=== PATIENT | male | born 1935 | race Caucasian/White ===

== ENCOUNTER → 2017-08-09 15:23 | Outpatient (CLI) | payer MEDICARE, SELFPAY ==
[2017-08-09 16:07] LABS: Mucous, Urine 0 SEEN /hpf (<or=2+)
[2017-08-09 17:00] LABS: Color, Urine Yellow (Yellow); Glucose, Dipstick 1000 mg/dl (Normal); Ketone-Dipstick Negative (Negative); Leukocyte Esterase-Dipstick 500 /ul (Negative); Nitrite-Dipstick Positive (Negative); Occult Blood-Urine 250 /ul (Negative); Protein-Dipstick 100 mg/dl (Negative); Urine Bilirubin Dipstick Negative (Negative); Urine Clarity Turbid (Clear); Urine Urobilinogen Normal (Normal)
[2017-08-09 17:34] LABS: Red Blood Cells-Urine 5-10 SEEN /hpf (0-5); Squamous Epithelial Cells - UA 0-5 SEEN /hpf (0-5); White Blood Cells >100 SEEN /hpf (0-5)
[2017-08-09 17:35] LABS: Bacteria 1+ /hpf (None Seen)
== END ==
PROVIDERS: Family Provider Internal Medicine; PCP Internal Medicine; Visit Provider Internal Medicine
DX: R30.0 Dysuria (principal); R35.0 Frequency of micturition; R39.15 Urgency of urination
CPT/HCPCS: 81001; 87077; 87086; 87088; 87186

== ENCOUNTER 2017-12-04 08:50 | Emergency (ER) | payer MEDICARE, SELFPAY ==
--- NOTE | 2017-12-04 08:50 | DT_ITS ---
This patient was seen during an EMR downtime December 03, 2017 - December 10, 2017. This patient may have a combination of paper and electronic documentation or all paper documentation. All documentation is viewable within the e-chart portion of [facility] for each patient visit.
--- NOTE | 2017-12-04 10:45 | CT_ITS ---
STUDY: CT ABDOMEN AND PELVIS WITHOUT CONTRAST REASON FOR EXAM: Male, 82 years old. Left lower quadrant pain. RADIATION DOSAGE (If Supplied By Facility): CTDIvol = ( 7.79 ) mGy, DLP = ( 396.99 ) mGycm TECHNIQUE: Transaxial images were obtained from the dome of the diaphragm to the symphysis pubis without oral contrast, and without intravenous contrast. Sagittal and coronal images were reconstructed. Individualized dose optimization techniques were used for this CT. COMPARISON: None. FINDINGS: The visualized lung bases are unremarkable. The visualized portions of the heart are within normal limits. Normal liver. There are multiple gallstones. There is moderate splenomegaly. Normal pancreas. Normal bilateral adrenal glands. Normal right kidney. Normal left kidney. No definite renal or ureteral stones are seen. There is no hydronephrosis on either side. Evaluation of the GI tract is limited by absence of oral contrast. Cannot exclude stomach wall thickening. No dilated loops of bowel or evidence for obstruction. Cannot exclude segmental thickening of the garrett of the small or large bowel. Cannot exclude enteritis or colitis. Moderate diffuse fecal retention. Diverticulosis without definite diverticulitis. Appendix within normal limits. Normal abdominal aorta. Normal inferior vena cava. Normal retroperitoneum. Normal urinary bladder. There is enlargement of the prostate gland. Normal abdominal wall. There are diffuse degenerative changes of the visualized lumbar spine. There are marked deformities of the left pelvis from previous fractures. There has been previous surgical repair RIGHT hip fracture. CT/Abdomen/Pelvis without Cont IMPRESSION: No definite acute abnormality. Electronically Signed: Otis Chacon MD at 21:38 EDT , Service support ,
[2017-12-06 18:49] LABS: Color, Urine Yellow (Yellow); Glucose, Dipstick 1000 mg/dl (Normal); Ketone-Dipstick Negative (Negative); Mucous, Urine 0 SEEN /hpf (<or=2+); Red Blood Cells-Urine 0 SEEN /hpf (0-5); Urine Bilirubin Dipstick Negative (Negative); Urine Clarity Sl Cloudy (Clear)
[2017-12-06 18:50] LABS: Bacteria 2+ /hpf (None Seen); Leukocyte Esterase-Dipstick 100 /ul (Negative); Nitrite-Dipstick Positive (Negative); Occult Blood-Urine 10 /ul (Negative); Protein-Dipstick 30 mg/dl (Negative); Squamous Epithelial Cells - UA 0-5 SEEN /hpf (0-5); Urine Urobilinogen Normal (Normal); White Blood Cells 0-5 SEEN /hpf (0-5)
[2017-12-07 13:41] LABS: Hematocrit 38.8 % (40-54); Hemoglobin 12.9 g/dl (13.0-16.5); Mean Corpuscular Volume 91.5 fL (80-94); Red Blood Count 4.24 M/mm3 (4.6-6.2); White Blood Count 6.6 K/mm3 (4.4-11.0)
[2017-12-07 13:42] LABS: Absolute Lymphocyte Count 0.86 X10^3/ul (0.83-4.51); Absolute Neutrophil Count 5.1 X10^3/uL (2.0-7.7); Basophil# 0.02 X10^3/uL; Basophil% 0.3 % (0-1); Eosinophil# 0.24 X10^3/uL; Eosinophils% 3.6 % (0-5); Lymphocyte # 0.86 X10^3/ul (4.0); Mean Corp Hgb Conc 33.2 g/gl (32-36); Mean Corpuscular Hgb 30.4 pg (27.0-32.0); Mean Platelet Vol. 11.8 fl (6.2-12.0); Monocyte# 0.43 X10^3/uL; Monocyte% 6.5 % (0-10); Neutrophil # 5.08 X10^3/uL (2.7-7.7); Neutrophil % 76.4 % (47-70); POSITIVE COUNT NO; POSITIVE DIFFERENTIAL NO; POSITIVE MORPHOLOGY NO; Platelet Count 148 K/mm3 (150-450); RBC Distribution Width CV 12.5 % (11.6-14.6); RBC Distribution Width SD 40.9 fl (35.1-43.9)
[2017-12-08 04:29] LABS: Anion Gap 6 (5-15); BUN 14 mg/dL (7-18); BUN/Creat Ratio 8.2 RATIO (10-20); Calcium,Total 8.7 mg/dL (8.5-10.1); Chloride 100 mmol/L (98-107); Creatinine, Serum 1.71 mg/dL (0.70-1.30); EST Glomerular Filtration Rate 41 mL/min (>60); Est Glom Filt Rate - Afr Amer 50 mL/min (>60); Glucose 241 mg/dL (74-106); Potassium 4.5 mmol/L (3.5-5.1); Sodium Level 133 mmol/L (136-145)
== END 2017-12-04 12:55 | disposition home or self-care (01) ==
PROVIDERS: Emergency Provider Emergency Medicine; Family Provider Internal Medicine; PCP Internal Medicine
DX: S30.1XXA Contusion of abdominal wall, initial encounter (principal); W01.0XXA Fall on same level from slipping, tripping and stumbling without subsequent striking against object, initial encounter; Y93.9 Activity, unspecified; Y92.9 Unspecified place or not applicable; N39.0 Urinary tract infection, site not specified; R19.7 Diarrhea, unspecified; E78.00 Pure hypercholesterolemia, unspecified; F03.90 Unspecified dementia, unspecified severity, without behavioral disturbance, psychotic disturbance, mood disturbance, and anxiety; J44.9 Chronic obstructive pulmonary disease, unspecified; E03.9 Hypothyroidism, unspecified; I12.9 Hypertensive chronic kidney disease with stage 1 through stage 4 chronic kidney disease, or unspecified chronic kidney disease; E11.22 Type 2 diabetes mellitus with diabetic chronic kidney disease; N18.3 Chronic kidney disease, stage 3 (moderate); Z79.4 Long term (current) use of insulin; Z79.899 Other long term (current) drug therapy
CPT/HCPCS: 36415; 74176; 80048; 81001; 85025; 99284; P9612

== ENCOUNTER 2018-10-31 12:18 | Emergency (ER) | payer MEDICARE, SELFPAY ==
[2018-10-10 13:44] VITALS: BMI 25.9
[2018-10-31 12:21] VITALS: BP 123/62; PULSE 46; PULSE 48; RESP 17; TEMP 36.6; O2SAT 97; O2SAT 98; BMI 25.9
--- NOTE | 2018-10-31 12:57 | ED.VISSUMM ---
- ER Visit Summary Date of Service: 10/31/18 Chief Complaint: [] Skin of back itching this morning History of Present Illness: The patient is a 83 M [] COPD asthma diabetes per the Sunday was started on tapering dose of prednisone by Dr. Javier has been doing well with his breathing his general health has been very good he said really no complaints except this morning he woke with severe itching involving his lower back it is not pain it is itching of the skin she indicates she spoke with his providers and he was told to come to the emergency department to have his kidneys checked, however his kidney function has not been an issue recently, he is eating and drinking he is passing urine without difficulty and bowel habits been normal he had no skin rash and there is nothing else that is troubling him Nothing specific or unique that could have caused the back itching such as new clothing etc. Physical Examination: [] vs Normal range he is in no distress General, no distress resting comfortably HEENT is generally unremarkable The neck is supple no adenopathy Cardiovascular, regular rate and rhythm his heart rate is 40-50 sinus rhythm Lungs, clear bilateral Abdomen, soft nontender The back exam shows no pain the skin is unremarkable but he is complaining of itching in a diffuse fashion to his back there is no lesions to any other part of his skin he is awake to his normal per the Extremities, no clubbing cyanosis or edema Neurologic, awake alert answering questions appropriately moving all 4 extremities with the patient has no specific complaints other than his back is itching Test Results: [] Emergency Department Course and Treatment: [] Given all of the above and the 's concerns that his kidney function should be checked we will obtain some screening labs spoke with Dr. Hill they were unaware of the patient's call to the office or visit to the emergency department given all the above they have no other additional instructions Treatment Plan: [] he is creatinine returns at about 2.17 he has had creatinines in that range in the past there is no recent tests to review, he voided just before he got to the emergency department he is been unable to void here but the rest of the studies were unremarkable the is comfortable taking him home she will use hydrocortisone to the back and follow-up with all of his outpatient providers tomorrow Disposition: [] Home stable Impression: [] Pruritus involving the back This note was generated with Appatureation software. It may contain incorrect words, spelling, and punctuation that were not noted in review of the chart prior to signing ED Disposition - Plan for ED Patient: Referrals: Estelle Araujo MD [Primary Care Provider] -
[2018-10-31 13:17] LABS: Absolute Lymphocyte Count 0.79 X10^3/ul (0.83-4.51); Absolute Neutrophil Count 3.4 X10^3/uL (2.0-7.7); Basophil# 0.01 X10^3/uL; Basophil% 0.2 % (0-1); Eosinophil# 0.05 X10^3/uL; Hematocrit 28.9 % (40-54); Hemoglobin 9.4 g/dl (13.0-16.5); Lymphocyte # 0.79 X10^3/ul (4.0); Lymphocyte % 16.4 % (19-41); Mean Corp Hgb Conc 32.5 g/gl (32-36); Mean Corpuscular Hgb 25.6 pg (27.0-32.0); Mean Corpuscular Volume 78.7 fL (80-94); Mean Platelet Vol. 11.1 fl (6.2-12.0); Monocyte# 0.51 X10^3/uL; Monocyte% 10.6 % (0-10); Neutrophil # 3.44 X10^3/uL (2.7-7.7); Neutrophil % 71.6 % (47-70); Platelet Count 100 K/mm3 (150-450); RBC Distribution Width CV 14.8 % (11.6-14.6); RBC Distribution Width SD 42.5 fl (35.1-43.9); Red Blood Count 3.67 M/mm3 (4.6-6.2); White Blood Count 4.8 K/mm3 (4.4-11.0)
[2018-10-31 13:18] LABS: POSITIVE COUNT NO; POSITIVE DIFFERENTIAL NO; POSITIVE MORPHOLOGY NO
[2018-10-31 13:28] LABS: Anion Gap 5 (5-15); BUN 24 mg/dL (7-18); BUN/Creat Ratio 11.2 RATIO (10-20); Calcium,Total 7.7 mg/dL (8.5-10.1); Chloride 102 mmol/L (98-107); Creatinine, Serum 2.14 mg/dL (0.70-1.30); EST Glomerular Filtration Rate 31 mL/min (>60); Est Glom Filt Rate - Afr Amer 38 mL/min (>60); Estimated Creatinine Clearance 24.86 ml/min; Glucose 266 mg/dL (74-106); Potassium 3.9 mmol/L (3.5-5.1); Sodium Level 133 mmol/L (136-145)
--- NOTE | 2018-10-31 15:07 | ED.DEP ---
ED Disposition - Plan for ED Patient: Instructions: ED Allergic Reaction General Other Referrals: Estelle Araujo MD [Primary Care Provider] - Additional Instructions: Please use hydrocortisone 1% to the back and follow-up with your outpatient providers tomorrow return for change in symptoms
[2018-10-31 15:29] VITALS: BP 134/60; PULSE 43; RESP 16
[2018-10-31 15:31] VITALS: BP 134/60; PULSE 43; RESP 16
== END 2018-10-31 15:39 | disposition home or self-care (01) ==
PROVIDERS: Emergency Provider Emergency Medicine; Family Provider Internal Medicine; PCP Internal Medicine
DX: L29.9 Pruritus, unspecified (principal); J44.9 Chronic obstructive pulmonary disease, unspecified; J45.909 Unspecified asthma, uncomplicated; E11.9 Type 2 diabetes mellitus without complications
CPT/HCPCS: 80048; 85025; 99284

== ENCOUNTER 2018-12-08 19:28 | Emergency (ER) | payer MEDICARE, SELFPAY ==
[2018-12-08 19:31] VITALS: BP 96/60; PULSE 59; RESP 17; TEMP 36.5; O2SAT 100; BMI 27.0
[2018-12-08 20:03] VITALS: BP 95/54; PULSE 58; RESP 16; O2SAT 95
--- NOTE | 2018-12-08 20:16 | EKG12_ITS ---
Test Reason : WEAKNESS Blood Pressure : / mmHG Vent. Rate : 056 BPM Atrial Rate : 056 BPM P-R Int : 216 ms QRS Dur : 086 ms QT Int : 502 ms P-R-T Axes : 072 -50 -58 degrees QTc Int : 484 ms Sinus bradycardia with 1st degree A-V block Left axis deviation Cannot rule out Anterior infarct , age undetermined Marked ST abnormality, possible inferior subendocardial injury Abnormal ECG Confirmed by MARCY JUAREZ, JERARDO ([id number]), writer editor ANNE MARIE MORRISON ([id number]) on 12/10/2018 8:09:36 AM Referred By: Confirmed By:JERARDO VIDAL MD
--- NOTE | 2018-12-08 20:16 | CT_ITS ---
STUDY: CT ABDOMEN AND PELVIS WITHOUT CONTRAST REASON FOR EXAM: Male, 83 years old. Audible fall, weakness. RADIATION DOSAGE (If Supplied By Facility): CTDIvol = ( 12.12 ) mGy, DLP = ( 982.33 ) mGycm TECHNIQUE: Transaxial images were obtained from the dome of the diaphragm to the symphysis pubis without oral contrast, and without intravenous contrast. Sagittal and coronal images were reconstructed. Individualized dose optimization techniques were used for this CT. COMPARISON: 12/04/2017. FINDINGS: Bilateral pleural effusions. Visualized heart is normal. The liver is unremarkable. Multiple dependent stones in the gallbladder. The spleen and pancreas are unremarkable. The adrenal glands are normal. The kidneys are unremarkable. No stones or hydronephrosis. The aorta is normal in caliber. There is no free fluid, free air, or organized collection. No bowel obstruction or inflammatory change. Normal appendix. Urinary bladder is unremarkable. There is a small fat-containing umbilical hernia. There is no acute osseous abnormality. Old healed fractures of the left pelvis are noted. Prior right hip pinning. CT/Abdomen/Pelvis without Cont IMPRESSION: 1. Bilateral pleural effusions. 2. Cholelithiasis. 3. Old healed pelvic fractures. Electronically Signed: Marlyn Wiley MD at 22:32 EDT Tel , Service support ,
--- NOTE | 2018-12-08 20:16 | CT_ITS ---
STUDY: CT BRAIN WITHOUT CONTRAST REASON FOR EXAM: Male, 83 years old. Multiple falls, weakness. RADIATION DOSAGE (If Supplied By Facility): CTDIvol = ( 44.99 ) mGy, DLP = ( 829.85 ) mGycm TECHNIQUE: Transaxial CT imaging of the brain was performed without administration of intravenous contrast material. Individualized dose optimization techniques were used for this CT. COMPARISON: No relevant priors. FINDINGS: Normal soft tissue structures. Normal calvarium. There is severe cerebral atrophy with widening of the extra-axial spaces and ventricular dilatation. There are areas of decreased attenuation within the white matter tracts of the supratentorial brain, consistent with microvascular disease changes. Normal basal ganglia and thalami. Normal brainstem. Normal cerebellum. There is no intracranial hemorrhage. There are no findings of an acute ischemic infarction. Fluid levels are noted in the maxillary, right frontal and sphenoid sinuses. There is mucosal thickening in the frontal, ethmoid, sphenoid and maxillary sinuses. CT/Brain/Head without Contrast IMPRESSION: 1. Acute on chronic sinusitis. 2. Chronic involutional changes. Electronically Signed: Marlyn Wiley MD at 22:44 EDT Tel , Service support ,
--- NOTE | 2018-12-08 20:17 | CT_ITS ---
STUDY: CT CERVICAL SPINE WITHOUT CONTRAST REASON FOR EXAM: Male, 83 years old. Multiple falls, weakness. RADIATION DOSAGE (If Supplied By Facility): CTDIvol = ( 22.09 ) mGy, DLP = ( 500.60 ) mGycm TECHNIQUE: High resolution transaxial imaging was performed without contrast material. Sagittal and coronal images were reconstructed. Individualized dose optimization techniques were used for this CT. COMPARISON: None FINDINGS: Normal craniovertebral junction. Normal anterior atlantoaxial articulation. Normal odontoid process. Normal cervical lordosis. Normal vertebral bodies and posterior osseous elements. C2-3: Normal endplates. Normal disc height and morphology. Normal central canal and intervertebral neuroforamina. There is bilateral uncinate hypertrophy. There is moderate facet hypertrophy, greater on the right. C3-4: Normal endplates. Normal disc height and morphology. There is a central calcified disc protrusion and mild canal stenosis. Foraminal stenosis is severe bilaterally, greater on the right, due to uncinate and marked right facet hypertrophy. C4-5: Normal endplates. Normal disc height and morphology. There is a central calcified disc protrusion. No canal stenosis. Foraminal stenosis is moderate on the left and severe on the right due to uncinate and marked right facet hypertrophy. C5-6: Normal endplates. Normal disc height and morphology. Small central disc protrusion. No canal stenosis. There is moderate bilateral foraminal stenosis, predominantly due to facet hypertrophy. Normal central canal and intervertebral neuroforamina. C6-7: Normal endplates. Normal disc height and morphology. Normal central canal and intervertebral neuroforamina. Uncinate and facet hypertrophy, greater on the right. C7-T1: Normal endplates. Normal disc height and morphology. Normal central canal and intervertebral neuroforamina. Bilateral pleural effusions are noted. CT/Spine Cervical without Contras IMPRESSION: 1. No evidence of cervical trauma. 2. Bilateral pleural effusions. 3. Mild degenerative changes of the cervical spine. Electronically Signed: Marlyn Wiley MD at 22:56 EDT Tel , Service support ,
[2018-12-08] MEDS: fentaNYL 100 MCG/2 ML Ampul 50 MCG IV ×2 (20:40→22:51)
--- NOTE | 2018-12-08 20:42 | RAD_ITS ---
STUDY: X-RAY CHEST REASON FOR EXAM: Male, 83 years old. Generalized weakness. TECHNIQUE: Portable chest. COMPARISON: 08/27/2014. FINDINGS: There is pulmonary hyperinflation with COPD. There is no demonstrated pleural abnormality. Normal size heart. Normal mediastinum and jocelyn. Normal visualized pulmonary arteries. Normal visualized aortic arch and descending thoracic aorta. Normal visualized thoracic spine. Normal visualized ribs, clavicles, and shoulders. There is no demonstrated abnormality of the visualized soft tissue structures of the upper abdomen. RAD/Chest 1 View (Portable) IMPRESSION: 1. COPD. No acute findings. Electronically Signed: Marlyn Wiley MD at 22:06 EDT Tel , Service support ,
[2018-12-08 20:52] LABS: Absolute Lymphocyte Count 0.79 X10^3/ul (0.83-4.51); Absolute Neutrophil Count 10.4 X10^3/uL (2.0-7.7); Hematocrit 20.4 % (40-54); Hemoglobin 6.4 g/dl (13.0-16.5); Lymphocyte # 0.79 X10^3/ul (4.0); Lymphocyte % 6.2 % (19-41); Mean Corp Hgb Conc 31.4 g/gl (32-36); Mean Corpuscular Hgb 24.2 pg (27.0-32.0); Monocyte# 1.51 X10^3/uL; Monocyte% 11.8 % (0-10); Neutrophil # 10.43 X10^3/uL (2.7-7.7); Neutrophil % 81.6 % (47-70); Platelet Count 223 K/mm3 (150-450); RBC Distribution Width CV 18.4 % (11.6-14.6); Red Blood Count 2.65 M/mm3 (4.6-6.2); White Blood Count 12.8 K/mm3 (4.4-11.0)
[2018-12-08 20:53] LABS: POSITIVE COUNT NO; POSITIVE DIFFERENTIAL YES
[2018-12-08 20:54] LABS: Differential Indicated SCAN CRITERIA MET; POSITIVE MORPHOLOGY YES
[2018-12-08 21:11] LABS: Differential Comment SCANNED
[2018-12-08 21:23] LABS: AST(SGOT) 846 U/L (15-37); Alanine Aminotransfer ALT/SGPT 897 U/L (16-61); Albumin, Serum 2.6 g/dL (3.2-5.0); Alkaline Phosphatase 106 U/L (45-117); Anion Gap 18 (5-15); BUN 89 mg/dL (7-18); BUN/Creat Ratio 17.9 RATIO (10-20); Bilirubin, Direct 1.34 mg/dL (0.00-0.30); Calcium,Total 7.1 mg/dL (8.5-10.1); Chloride 98 mmol/L (98-107); Creatinine, Serum 4.98 mg/dL (0.70-1.30); EST Glomerular Filtration Rate 12 mL/min (>60); Est Glom Filt Rate - Afr Amer 14 mL/min (>60); Estimated Creatinine Clearance 10.68 ml/min; Globulin 3.3 g/dL (2.2-4.2); Glucose 170 mg/dL (74-106); Lipase 445 U/L (73-393); Potassium 5.6 mmol/L (3.5-5.1); Protein, Total 5.9 g/dL (6.4-8.2); Sodium Level 130 mmol/L (136-145)
[2018-12-08 21:25] LABS: Lactic Acid 5.5 mmol/L (0.4-2.0)
--- NOTE | 2018-12-08 21:25 | ED.RN ---
DR BALLARD AWARE OF TROPONIN 6.3 AND LACTIC 5.5.
--- NOTE | 2018-12-08 21:27 | ED.RN ---
CRITICAL TROPONIN LEVEL RECEIVED, MD AND RN AWARE.
--- NOTE | 2018-12-08 21:57 | HP.PCM_ITS ---
History of Present Illness Date of Admission: 12/08/18 Chief Complaint: Weak, fatigued, falls The patient is a 83 year old M [] Past Medical History Past Medical History (Chronic Problems): Chronic Problems (Last Reviewed 06/19/18 @ 10:48 by CIARA Jordan) Mild persistent asthma (Chronic) Dysphagia (Chronic) Type 2 diabetes mellitus (Chronic) Depression (Chronic) Dementia (Chronic) Chronic obstructive lung disease (Chronic) CKD (chronic kidney disease), stage III (Chronic) Chronic congestive heart failure (Chronic) Benign essential hypertension (Chronic) A-fib (Chronic) history of duodenal tumor (Chronic) Coronary artery disease (Chronic) Hypothyroidism (Chronic) Hyperlipidemia (Chronic) Gastroesophageal reflux disease (Chronic) Asthma (Chronic) Medical History: Medical History (Last Reviewed 06/19/18 @ 10:48 by CIARA Jordan) Asthma with acute exacerbation (Acute) J45.901 Acute sinusitis (Acute) J01.90 Mild persistent asthma (Chronic) J45.30 Dysphagia (Chronic) R13.10 Type 2 diabetes mellitus (Chronic) E11.9 Depression (Chronic) F32.9 Dementia (Chronic) F03.90 Chronic obstructive lung disease (Chronic) J44.9 CKD (chronic kidney disease), stage III (Chronic) Chronic congestive heart failure (Chronic) I50.9 Benign essential hypertension (Chronic) I10 A-fib (Chronic) I48.91 history of duodenal tumor (Chronic) Coronary artery disease (Chronic) I25.10 Hypothyroidism (Chronic) E03.9 Hyperlipidemia (Chronic) E78.5 Gastroesophageal reflux disease (Chronic) K21.9 Asthma (Chronic) J45.909 Allergies amoxicillin trihydrate [From Augmentin] Allergy (Verified 12/08/18 19:36) Other ciprofloxacin [From Cipro] Allergy (Verified 12/08/18 19:36) Unknown levofloxacin [From Levaquin] Allergy (Verified 12/08/18 19:36) Other meperidine HCl [From Demerol] Allergy (Verified 12/08/18 19:36) Other potassium clavulanate [From Augmentin] Allergy (Verified 12/08/18 19:36) Other prochlorperazine edisylate [From Compazine] Allergy (Verified 12/08/18 19:36) Other prochlorperazine maleate [From Compazine] Allergy (Verified 06/09/19 19:36) Other ranitidine [From Zantac] Adverse Reaction (Verified 12/08/18 19:36) Nausea/Vom/Diarrhea Sulfa (Sulfonamide Antibiotics) Adverse Reaction (Verified 12/08/18 19:36) Nausea/Vom/Diarrhea Home Medications: Ambulatory Orders Medication Instructions Recorded Atenolol [Tenormin (beta boni)] 25 mg PO DAILY 05/20/14 Atorvastatin Calcium [Lipitor] 10 mg PO QHS 05/20/14 Cholecalciferol (VIT D3) [Vitamin 1,000 unit PO DAILY 05/20/14 D3] Insulin Glargine [Lantus SoloStar 58 units SUBCUT QHS 05/20/14 Pen] Levothyroxine [Synthroid] 75 mcg PO DAILY 05/20/14 Montelukast [Singulair] 10 mg PO DAILY 05/20/14 Vitamin B-12 1,000 mg PO DAILY 05/20/14 albuterol sulfate HFA 90 2 puff INHALATION Q4H g 10/17/17 mcg/actuation aerosol inhaler beclomethasone diprop 80 1 puff INHALATION BID #3 device 01/17/18 mcg/actuation HFA breath activated aerosol fluticasone propionate 50 2 spray INTRANASAL BID #16 g 09/13/18 mcg/actuation nasal spray,suspension albuterol sulfate 2.5 mg/3 mL 2.5 mg INHALATION Q4H PRN #180 vial 11/29/18 (0.083 %) solution for nebulization Insulin Lispro [Humalog] 100 unit SQ .COMPLEX 12/08/18 L. Acidophilus/L. Rhamnosus 1 each PO DAILY 12/08/18 [Probiotic 15 Billion Cell Cap] Maypearl-3 Fatty Acids [Fish Oil] 1,000 mg PO DAILY 12/08/18 Surgical History: Surgical History (Last Reviewed 06/19/18 @ 10:48 by CIARA Jordan) History of right cataract extraction (Resolved) Z98.41 Surgical History: no surgical history Smoking Status: Never smoker - Physical Exam Vital Signs Temp Pulse Resp BP Pulse Ox 97.7 F L 58 L 16 95/54 L 95 12/08/18 19:31 12/08/18 20:03 12/08/18 20:03 12/08/18 20:03 12/08/18 20:03 Oxygen Delivery Method Room Air Weight: 177 lb 14.609 oz Body Mass Index (BMI) 27.0 Laboratory Tests Past 24 Hrs 12/08/18 12/08/18 12/08/18 20:30 20:30 20:30 WBC 12.8 H RBC 2.65 L Hgb 6.4 L Hct 20.4 L MCV 77.0 L MCH 24.2 L MCHC 31.4 L RDW 18.4 H RDW Differential 52.0 H Plt Count 223 MPV 12.0 Immature Gran % (Auto) 0.400 Neut % (Auto) 81.6 H Lymph % (Auto) 6.2 L Slope % (Auto) 11.8 H Eos % (Auto) 0.0 Baso % (Auto) 0.0 Absolute Neuts (auto) 10.4 H Absolute Lymphs (auto) 0.79 L Total Counted Not Reportable Nucleated RBC % 0.10 Differential Comment SCANNED Absolute Retic 0.80 Sodium 130 L Potassium 5.6 H Chloride 98 Carbon Dioxide 14.0 L Anion Gap 18 H BUN 89 H Creatinine 4.98 H Estim Creat Clear Calc 10.68 Est GFR (MDRD) Af Amer 14 L Est GFR (MDRD) Non-Af 12 L BUN/Creatinine Ratio 17.9 Glucose 170 H Lactic Acid 5.5 H* Calcium 7.1 L Total Bilirubin 2.30 H Direct Bilirubin 1.34 H AST 846 H ALT 897 H Alkaline Phosphatase 106 Troponin I 6.300 H* Total Protein 5.9 L Albumin 2.6 L Globulin 3.3 Lipase 445 H Assessment/Plan All Active Problems (Last Reviewed 06/19/18 @ 10:48 by Shannan Sosa NP-C) History of right cataract extraction (Resolved) Asthma with acute exacerbation (Acute) Acute sinusitis (Acute)
[2018-12-08 22:00] VITALS: BP 108/61; PULSE 97; RESP 19; O2SAT 98
--- NOTE | 2018-12-08 22:33 | PCM.HOSP.N ---
Hospitalist Note The patient is a 83 y/o M w/ PMHx: HTN, HLD, Chronic Asthma and COPD, GERD, Hx Duodenal Tumor, CAD, Diabetes mellitus type II, Dementia unclear type with unclear behavioral disturbance history Chronic CHF Unclear type, PAF, CKD stage III (baseline Cr 1.5-2), Chronic Microcytic Anemia (baseline Hgb 9 range) who presents to the [facility] ED on 12/08/18 with history of recently progressively worsening generalized weakness, malaise, poor oral intake, fluctuating blood sugars, frequent falls over the last several days in addition to abdominal and lumbar back pain complaints. Work-up in the ED included T 97.7, heart rate 59, BP 96/60, respiratory rate 17, 100% on room air, CBC with WC 12.8, hemoglobin 6.4, platelet 223 with left shift, CMP with sodium 130, potassium 5.6, carbon dioxide 14, anion gap 18, BUN/Cr 89/4.98, glucose 170, lactic acid 5.5, T bili 2.3, D bili 1.34, AST/ALT 846/897, Trop 6.30, lipase 445. CXR, CT A/P without contrast, CT head, CT neck pending. In the ED patient administered NS, Fentanyl. Discussion CODE status: Discussed CODE status at length including difference between FULL code, DNR-CCA and DNR-CC status. Following discussions about the differences in these status, requested DNR-CC status. DNR-CC form signed and placed on the chart. Discussed hospice evaluation options and family and HCPOA elevated transition from ED to [facility] who was contacted and RN evaluation pending. Advanced Care Planning Face to Face Time: 20 minutes. Code Visit Procedures: [id number] Advncd Care Plan 30 Min
--- NOTE | 2018-12-08 22:45 | CCHN_ITS ---
Hospitalist Note The patient is a 83 y/o M w/ PMHx: HTN, HLD, Chronic Asthma and COPD, GERD, Hx Duodenal Tumor, CAD, Diabetes mellitus type II, Dementia unclear type with unclear behavioral disturbance history Chronic CHF Unclear type, PAF, CKD stage III (baseline Cr 1.5-2), Chronic Microcytic Anemia (baseline Hgb 9 range) who presents to the [facility] ED on 12/08/18 with history of recently progressively worsening generalized weakness, malaise, poor oral intake, fluctuating blood sugars, frequent falls over the last several days in addition to abdominal and lumbar back pain complaints. Work-up in the ED included T 97.7, heart rate 59, BP 96/60, respiratory rate 17, 100% on room air, CBC with WC 12.8, hemoglobin 6.4, platelet 223 with left shift, CMP with sodium 130, potassium 5.6, carbon dioxide 14, anion gap 18, BUN/Cr 89/4.98, glucose 170, lactic acid 5.5, T bili 2.3, D bili 1.34, AST/ALT 846/897, Trop 6.30, lipase 445. CXR, CT A/P without contrast, CT head, CT neck pending. In the ED patient administered NS, Fentanyl. Discussion CODE status: Discussed CODE status at length including difference between FULL code, DNR-CCA and DNR-CC status. Following discussions about the differences in these status, requested DNR-CC status. DNR-CC form signed and placed on the chart. Discussed hospice evaluation options and family and HCPOA elevated transition from ED to [facility] who was contacted and RN evaluation pending. Advanced Care Planning Face to Face Time: 20 minutes. Code Visit Procedures: [id number] Advncd Care Plan 30 Min
--- NOTE | 2018-12-08 23:19 | ED.DCSUM_ITS ---
- ER Visit Summary Date of Service: 12/08/18 Chief Complaint: Generalized weakness History of Present Illness: The patient is a 83 M presenting with generalized weakness and fatigue. Patient's family states he has been declining over the past several days. They have made multiple attempts to convince him to come to the hospital. He has had malaise, fluctuating blood sugars, unsteady gait, falls. He has had a decreased appetite. They finally convinced him to come to the ED today. He has been complaining of abdominal pain and back pain. Patient denies pain on arrival. He has a history of dementia Physical Examination: Blood pressure 95/54, temperature 97.7, heart rate 68, respiratory rate 19, 98% on room air HEENT exam dry mucous membrane Neck is supple. Lungs are clear and equal bilaterally. Heart is regular rate and rhythm. Abdomen is soft diffuse tenderness with no rebound or guarding Extremities symmetric edema Skin is warm and dry, pallor and jaundice Alert at baseline Remainder of exam is unremarkable. Emergency Department Course and Treatment: EKG is sinus bradycardia rate of 56 with first-degree AV block. Chest x-ray shows COPD. CBC shows white count 12.8, hemoglobin 6.4. Chemistries show sodium 130, potassium 5.6, CO2 14, anion gap 18, glucose 170, BUN 89, 4.98. Total bili 2.3, direct bili 1.3, AST 846, ALT 897, lipase 445. Troponin is 6.3. Lactic acid 5.5. CT head and neck were obtained due to frequent falls and show no acute process. CT abdomen showed bilateral pleural effusions, cholelithiasis. Discussion with the family at bedside and patient would not want any heroic measures and they are interested in hospice care. Patient will be DNR CC. Discussed with the hospitalist to evaluate the patient in the ED. Hospice will evaluate in the ED for transfer to hospice [facility]. Disposition: Transfer hospice Impression: Multisystem organ failure; NSTEMI, anemia, acute kidney injury, elevated liver enzymes, lactic acidosis This note was generated with [employer] dictation software. It may contain incorrect words, spelling, and punctuation that were not noted in review of the chart prior to signing ED Disposition - Plan for ED Patient: Referrals: Estelle Araujo MD [Primary Care Provider] -
[2018-12-09 00:37] LABS: Reflex Lactate? Y
== END 2018-12-09 00:05 | disposition skilled nursing facility (03) ==
PROVIDERS: Emergency Provider Emergency Medicine; Family Provider Internal Medicine; PCP Internal Medicine
DX: I21.4 Non-ST elevation (NSTEMI) myocardial infarction (principal); E87.2 Acidosis; N17.9 Acute kidney failure, unspecified; D64.9 Anemia, unspecified; F03.90 Unspecified dementia, unspecified severity, without behavioral disturbance, psychotic disturbance, mood disturbance, and anxiety; Z66 Do not resuscitate; I13.0 Hypertensive heart and chronic kidney disease with heart failure and stage 1 through stage 4 chronic kidney disease, or unspecified chronic kidney disease; E11.22 Type 2 diabetes mellitus with diabetic chronic kidney disease; N18.3 Chronic kidney disease, stage 3 (moderate); I50.9 Heart failure, unspecified; I25.10 Atherosclerotic heart disease of native coronary artery without angina pectoris; J45.909 Unspecified asthma, uncomplicated; K21.9 Gastro-esophageal reflux disease without esophagitis; E78.00 Pure hypercholesterolemia, unspecified; I48.91 Unspecified atrial fibrillation; Z79.51 Long term (current) use of inhaled steroids; Z79.4 Long term (current) use of insulin; Z79.899 Other long term (current) drug therapy
CPT/HCPCS: 70450; 71045; 72125; 74176; 80048; 80076; 83605; 83690; 84484; 85025; 93005; 96361; 96374; 96376; 99285; J7030; J7040; A4216